=== PATIENT | male | born 1950 | race Caucasian/White ===

== ENCOUNTER → 2017-06-02 | Outpatient (CLI) | payer OTHER ==
[~2017-06-02] MED LIST: ASCO1CAP3 PO; ASPEC325 PO; ATOR-22 PO; B-COTAB18 PO; CHOL1000 PO; DILT-117 PO; FAMO40TA6 PO; FINA5TAB4 PO; FLM4 PO; FURO-85 PO; LOSA100T26 PO; LOSA100T65 PO; NAPR1TAB9 PO; PANT40TA PO; PSYL48.59 PO; SIMV40TA2 PO; vitamin d PO
--- NOTE | 2017-06-03 06:32 | PAP/PSG TECHNICIAN REPORT ---
[facility] Director Of Managed Care Polysomnogram Report Study name: None Report date: 06/03/2017 Study date: 06/02/2017 Referring Physician: Mary Lou NINO M.D. Name: MAC MISTRY Interpreting Physician: Hector Nino M.D. Date of : 1950 Director Of Managed Care: Chela Gray RPSGT. Sex: Male Age: 66 Study Type: PSG Weight: 243 lbs Height: 66 years, Height 5' 10.5" BMI: 34.37 Medications: VIT C 500 MG, ASPIRIN 325 MG, VIT B COMPLEX, FINASTERIDE 5 MG, LOSARTAN, PANTOPRAZOLE 40 MG, SIMVASTATIN 40 MG, FLOMAX 0.4 MG, VIT D 1000 UNIT Patient History 66 yr-old male here for a baseline/split study. He has a history of daytime sleepiness and snoring. The test was started on room air. ETCO2 testing is included in this study. Room 3 Parameters Monitored NPSG: E1-M2, E2-M1, Fp1-M2, Fp2-M1, F3-M2, F4-M2, F4-M1, C3-M2, C4-M2, C4-M1, O1-M2, O2-M2, O2-M1, T3-M2, T4-M1, P3-M2, P4-M1, CHIN1, CHIN2, HR, EKG, Legs, PFLOW, SNOR, FLOW, CFLOW, Tidal Volume, THOR, ABDO, SpO2, PLTH, CPRESS, ETCO2 Wave, ETCO2, pH Sleep Architecture Sleep Stages Time at Lights Off 10:29:20 PM STAGES Time (min.) TST (%) Time at Lights On 5:30:50 AM Wake 42.5 -- Total Recording Time (TRT) 421.50 min. N1 38.5 10 Total Sleep Period (TSP) 408.0 min. N2 252.5 67 Total Sleep Time (TST) 379.0min. N3 31.0 8 Awake Time 42.5 min. REM 57.0 15 Wake after Sleep Onset 37.5 min. Sleep Efficiency (SE) 90 % Sleep Onset Latency (FRAN) 5.0 min. Number of Stage 1 Shifts None Awakenings 22 Stage Changes 113 Number of REM periods 7 REM 57.0 15 REM Latency 72.5 min. NREM 322.0 85 Body Position Analysis Supine Right Left Side Prone Vertical Total Sleep Time (min.) 78.1 114.3 196.7 311.00 0.0 0.0 Total Sleep Time (%) 18% 30% 52% 82 0% N/A% Total Sleep Time REM (min.) 0.0 17.0 40.0 None 0.0 0.0 Total Sleep Time NREM (min.) 68.0 97.3 156.7 None 0.0 0.0 Intermittent Wake (min.) 10.1 18.6 13.8 None 0.0 0.0 Total Sleep Period (%) 18% None None None None None Arousals Myoclonus (PLM) * Events Count Index Events Count Index Spontaneous 17 3 Events Awake (PLMW) 37 52.2 Respiratory 20 3.5 Events Asleep w/ Arousal (PLMA) 5 0.8 PLM 5 1 Events Asleep w/o Arousal (PLMS) 37 5.9 Snoring 14 2 Total Asleep 42 6.6 Total 56 9 Total 79 11 Respiratory Analysis * CA OA MA CH H RERA Total Count 0 0 0 0 92 5 92 Index 0.0 0.0 0.0 0 14.6 1 15.4 Mean Duration 0.0 0.0 0.0 0.00 23.8 20.2 23.6 Longest Duration 0.0 0.0 0.0 0.00 0.0 26.2 54.5 Respiratory Event Summary Total Supine ~Supine Right Left Prone REM NREM Apneas Count 0 0 0 0 0 N/A 0 0 Index 0.0 0 0 0.0 0.0 N/A 0 0 Hypopneas (4% Desat) Count 92 12 80 37 43 N/A 34 58 Index 14.6 10.6 15 19.4 13.1 N/A 35.8 10.8 Apneas & All Hypopneas Count 92 12 80 37 43 N/A 34 58 Index 14.6 11 15 19 13 N/A 35.8 10.8 Respiratory Events (Employee Service Officer+All Hyp+RERA) Count 92 12 85 41 44 N/A 34 58 Index 15.4 11 16 21.5 13.4 N/A 35.8 11.7 Respiratory Related Arousal Count 20 12 21 10 11 N/A 5 17 Index 3.5 1 4 5 3 N/A 5 3 Snoring Analysis Supine Right Left Prone REM NREM Total Snore duration 138.2 min Snores count 794 1,142 2,030 N/A 660 3,306 3,966 Snore mean duration 2.1 Sec Snores index 701 600 619 N/A 694.7 616.0 627.9 TST with snoring (%) 36.5% SpO2 Analysis Total REM NREM Awake <50% 0.0 min. 0.0 min. 0.0 min. 0.0 min. 51 - 60% 0.0 min. 0.0 min. 0.0 min. 0.0 min. 61 - 70% 0.0 min. 0.0 min. 0.0 min. 0.0 min. 71 - 80% 6.5 min. 5.0 min. 1.2 min. 0.4 min. 81 - 90% 369.1 min. 40.3 min. 299.2 min. 29.7 min. 91 - 100% 45.8 min. 11.8 min. 21.7 min. 12.4 min. Average 88 87 88 89 Minimum SpO2 74 75 75 74 Desaturation Event Index 15.9 34.7 13.2 12.7 # Desat. Events below 89% 102 28 67 7 Time(%) with Saturation below 89% 58.2 8.7 45.3 4.2 Time(min.) with Saturation below 89% 245.2 36.6 191.0 17.6 Heart Rate Analysis End Tidal CO2 Analysis Min (bpm) Max (bpm) Average (bpm) TSP (mins) % of TSP Awake 56 91 72 Above 55 mmHg 0.0 0.0 NREM 52 85 65 50-55 mmHg 1.4 0.4 REM 54 83 67 45-50 mmHg 54.3 14.3 Overall 52 85 65 40-45 mmHg 95.0 25.1 35-40 mmHg 52.4 13.8 30-35 mmHg 73.1 19.3 Average ETCO2 0.2 Supplemental O2 Values Minimum O2 level: None Value Start Time End Time Director Of Managed Care Comments Mr. Mistry slept in the right, left, and supine positions. No cardiac arrhythmias or PLMs noted. No bruxism noted. Snoring was noted and scored as a 3 on a scale of 1 through 5. (0=no snoring, 5=snoring loud enough to be heard through a closed door or down the berman way). He did not meet specific Split-Night criteria during the diagnostic portion of this study. He did not wake up to use the restroom during the night. Mr. Mistry stated that he slept almost the same as usual. The final report will be interpreted and signed by a sleep physician. The completed physician report will then be placed in the patient medical record. Therapy (cm H2O) 0 TIB (min.) 421.5 TST (min.) 379.0 Sleep Onset (min.) 5.0 REM Onset From Sleep (min.) 72.5 Sleep Efficiency % 90 Wakefulness (%) 10 Wakefulness (min.) 42.5 NREM 1 (%) 10 NREM 1 (min.) 38.5 NREM 2 (%) 67 NREM 2 (min.) 252.5 NREM 3 (%) 8 NREM 3 (min.) 31.0 REM (%) 15 REM (min.) 57.0 # Arousals 56 Arousal Index 9 # Snore 3,966 Snore Index 627.9 AHI 14.6 AHI Supine 11 AHI Non-Supine 15 NREM AHI 10.8 REM AHI 35.8 RDI 15.4 # Obstructive Apnea 0 # Central Apnea 0 # Mixed Apnea 0 # Hypopneas 92 RERAs 5 Total Respiratory Events 97 Time Below SpO2 89% (min.) 227.6 Mean NREM SpO2 (%) 88 Mean REM SpO2 (%) 87 Mean Sleep SpO2 (%) 88 Min NREM SpO2 (%) 75 Min REM SpO2 (%) 75 Position Supine (min.) 78.1 Position Non-supine (min.) 311.0 LM Index Sleep 6.6 LM Index NREM 6.1 LM Index REM 9.5 Mean Heart Rate (bpm) 65 Min Heart Rate (bpm) 52
--- NOTE | 2017-06-14 19:23 | POLYSOMNOGRAPH REPORT ---
REFERRING PERSON: Dr. Peyton Nino. GLORY HOLE TENDER: Chela Gray. Mr. Mistry is a 66-year-old male sent for a baseline split night sleep study. He has a history of excessive daytime sleepiness and has loud snoring. His [place] Sleepiness Scale score on the evening of this study is unknown. BMI is 34.37. Following the technical and digital specifications of the [place] [employer] (AASM) a standard diagnostic polysomnogram was performed monitoring EEG, EOG, EMG (chin and leg deviations), oxygen saturation, body position, digital video, respiratory effort and airflow. The sleep Stage and event scoring was based on the AASM Manual for the Scoring of Sleep and Associated Events 2007 edition. Apneas are defined as a drop in the peak thermal sensor excursion by >90% of baseline for at least 10 seconds. Hypopneas were scored using the 4% oxygen desaturation rule (4A-Medicare) and a decrease in the nasal pressure excursions by >30% of baseline for at least 10 seconds. Respiratory effort-related arousal (RERA's) is defined as a sequence of breaths lasting at least 10 seconds characterized by increasing respiratory effort or flattening of the nasal pressure waveform leading to an arousal from sleep when the sequence of breaths does not meet criteria for an apnea or hypopnea. Apnea Hypopnea index (AHI) is defined as the number of apneas and hypopneas occurring in an hour of sleep. Respiratory disturbance index (RDI) is defined as the number of apneas, hypopneas, and RERA's occurring in an hour of sleep. Mr. Mistry's total sleep period time was 408 minutes. Total sleep time was 379 minutes. Sleep efficiency was 90%. Latency to sleep onset was 5 minutes with wake after sleep onset of 37.5 minutes. Total non-REM sleep time was 322 minutes. He spent 10% of that time in N1 sleep, 67% in N2 sleep and 8% in N3 sleep. REM latency was 72.5 minutes. Total REM sleep time was 57 minutes or 15% of total sleep time. There were 56 cortical arousals from sleep. 17 of these arousals were spontaneous, 20 were due to respiratory events, 5 due to periodic limb movements of sleep and 14 were due to snoring. There were 42 periodic limb movements noted on this test. Limb movement index was 6.6. Limb movement with arousal index was 0.8. There were no central, obstructive, or mixed apneas on this test. However, there were 92 hypopneas. Apnea-hypopnea index was 14.6. This is consistent with mild sleep apnea. Supine AHI was 11. REM AHI was 35.8. 3966 snoring events were recorded. Total sleep time with snoring was 36.5%. Mean saturation during sleep was low at 88% with desaturations to 74% with respiratory events. Saturations were less than 89% for 245.2 minutes of recorded time. This is very significant nocturnal hypoxemia. This was worse during non-supine REM sleep on this test. There was no supine REM but during 3 periods of non-supine REM, there were desaturations. There was no cardiac ectopy noted on this study. Heart rates during sleep ranged from a low of 52 beats per minute to a high of 85 beats per minute. End End-tidal CO2 was recorded on this test. End tidal CO2s were between 50 and 55 mmHg for 0.4% of total sleep period time, between 45 and 50 mmHg for 14.3%, between 40 and 45 mmHg for 25.1%, between 35 and 40 mmHg for 13.8% and between 30 and 35 mmHg for 19.3% of total sleep period time. IMPRESSION AND PLAN: A 66-year-old male with evidence of mild sleep apnea worsen REM sleep as well as very significant nocturnal hypoxemia on this sleep study. Desaturations were markedly noted in non-supine REM. 1. This patient would likely benefit from positive airway pressure therapy. He should return to the sleep lab for a full night titration and then based on those results be started on equipment at home. A download from his machine can be reviewed in 1 month both to check compliance as well as AHI and further pressure adjustments can occur at that time. 2. Should this patient be unwilling or unable to tolerate CPAP therapy, he should be started on nocturnal oxygen (if his insurance allows) and then referred to ear, nose and throat or oral surgery/dental medicine to discuss alternative treatments for sleep disorder breathing.
== END | disposition home or self-care (01) ==
LOC: C.NEUR 21:00
PROVIDERS: ATTEND Family Medicine
DX: G47.33 Obstructive sleep apnea (adult) (pediatric) (principal); R06.83 Snoring; G47.10 Hypersomnia, unspecified; E66.9 Obesity, unspecified

== ENCOUNTER 2017-06-15 18:42 | Emergency (ER) | payer OTHER ==
[~2017-06-15] VITALS: Ht 177.8 cm; Wt 116.1 kg
[~2017-06-15 18:42] MED LIST changes: -ATOR-22 PO; -CHOL1000 PO; -DILT-117 PO; -FAMO40TA6 PO; -FURO-85 PO; -LOSA100T65 PO; -NAPR1TAB9 PO; -PSYL48.59 PO
[2017-06-15 18:49] VITALS: Ht 177.8 cm; Wt 116.1 kg
[2017-06-15] MEDS ORDERED: LOSA100T65 PO (19:05)
[2017-06-15] MEDS ORDERED: DILT-117 PO (19:05)
[2017-06-15] MEDS ORDERED: FAMO40TA6 PO (19:05)
[2017-06-15] MEDS ORDERED: FURO-85 PO (19:05)
[2017-06-15] MEDS ORDERED: NAPR1TAB9 PO (19:05)
[2017-06-15] MEDS ORDERED: PSYL48.59 PO (19:05)
[2017-06-15] MEDS ORDERED: CHOL1000 PO (19:05)
[2017-06-15] MEDS ORDERED: ATOR-22 PO (19:07)
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
[2017-06-15 20:39] VITALS: BP 160/98; PULSE 93; O2SAT 98
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
== END 2017-06-15 20:40 | disposition home or self-care (01) ==
LOC: EDBD 18:42 → C.EDA 18:44
DX: Z04.3 Encounter for examination and observation following other accident (principal); I10 Essential (primary) hypertension; I44.0 Atrioventricular block, first degree; Z87.891 Personal history of nicotine dependence

== ENCOUNTER → 2018-01-11 | Day surgery (SDC) | payer OTHER ==
[2017-12-02 08:13] VITALS: Ht 177.2 cm; Wt 108.2 kg
[~2018-01-11] VITALS: Ht 177.2 cm; Wt 108.2 kg
[~2018-01-11] MED LIST changes: +500ML BSS 0.3ML EPI 1:1000PF IRRIG ONE; +ACETAMINOPHEN 325 MG TAB PO PRN; +AMVISC PLUS 0.8ML SYRINGE INT OCU ONE; -ASCO1CAP3 PO; -ASPEC325 PO; +ATOR-22 PO; +ATROPINE SULFATE 0.1 MG/ML 5ML SYR IV PRN; +BSS FLUSH ONE; +CHOL1000 PO; +DILT-117 PO; +EpHEDrine SULFATE INJ 50 MG/ML AMP IV PRN; +EpINEphrine INJ 1MG/ML AMP 1 MG/ML AMP ONE; +FAMO40TA6 PO; -FLM4 PO; +FURO-85 PO; +LACTATED RINGER'S 1000ML 500 ML IV SCH; +LIDOCAINE 3.5% OPH GEL PER APPLICATION CHARGE ONE; +LIDOCAINE HCL 1% MPF 2 ML VIAL ONE; -LOSA100T26 PO; +LOSA100T65 PO; +MIDAZOLAM HCL 1 MG/ML 2ML VIAL ONE; +NAPR1TAB9 PO; +OCUCOAT 1 ML SOLN IO ONE; +PHENYLEPHRINE HCL 10% OP SOLN PER DROP CHARGE OPL SCH; +POVIDONE-IODINE OP SOLN 30 ML BTL ONE; +PROPARACAINE 0.5% OP SOLN PER DROP CHARGE OPL SCH; +PSYL48.59 PO; -SIMV40TA2 PO; +TAMS0.4C38 PO; +TOBRAMYCIN/DEXAMETHASONE OPH OINT PER APPLN CHARGE ONE; -vitamin d PO
[2018-01-11] MEDS: PHENYLEPHRINE HCL 2.5% OP SOLN PER DROP CHARGE OPL SCH ×2 (10:28→10:37)
[2018-01-11] MEDS: TROPICAMIDE 1% OP SOLN PER DROP CHARGE OPL SCH ×2 (10:29→10:38)
[2018-01-11] MEDS: CYCLOPENTOLATE HCL 1% OP SOLN PER DROP CHARGE OPL SCH ×2 (10:30→10:39)
[2018-01-11] MEDS: KETOROLAC 0.5% OP SOLN PER DROP CHARGE OPL SCH ×2 (10:31→10:40)
[2018-01-11] MEDS: GATIFLOXACIN OP SOLN PER DROP CHARGE OPL SCH ×2 (10:32→10:42)
--- NOTE | 2018-01-11 10:37 | History & Physical Bridge - SC ---
H&P Re-Evaluation Bridge Note: I have examined the patient, reviewed the History & Physical and in the interval since the performance of the History & Physical I have noted the following changes of clinical significance Diagnosis: Left Cataract Procedure: Left Cataract Removal with Lens Implant : No changes noted
--- NOTE | 2018-01-11 11:21 | [facility] Operative Report ---
Operative Report Date of Service January 11, 2018. Operative Report 1. PREOPERATIVE DIAGNOSIS: Cataract of the left eye. 2. POSTOPERATIVE DIAGNOSIS: Same. 3. PROCEDURE: Phacoemulsification with intraocular lens implantation of the left eye. SURGEON: Dr. Scott Owens. ANESTHESIA: Topical Lidocaine gel, 1% Non- Preserved intracameral Lidocaine, and monitored intravenous sedation. INDICATIONS FOR THE PROCEDURE: The patient is a 67 - year-old male with a history of cataract of the left eye causing significant visual impairment. The details of the proposed procedure were explained to the patient who asked appropriate questions and following discussion of all risks, benefits and alternatives agreed to have the procedure done. Patient had corneal astigmatism and therefore elected to have a toric lens placed. 4. OPERATION AND FINDINGS: DESCRIPTION OF PROCEDURE: After informed consent was obtained, the .patient was placed in an upright position and the cornea was marked at 85 degrees using the [employer] corneal marking tool. The patient was brought to the Operating Room at the [facility]. The patient was placed in a supine position and then the left eye was prepped and draped in the usual sterile fashion for intraocular surgery. A drop of topical Lidocaine gel was placed in the operative eye. A wire lid speculum was then placed in the fornices. A corneal paracentesis was then created temporally. The Non-Preserved Lidocaine was then instilled into the anterior chamber. The anterior chamber was then pressurized with viscoelastic. A 2.0 mm clear corneal incision was then created temporally. A cystotome was inserted into the anterior chamber and used to create a tear in the anterior lens capsule. This capsular tear was then used to create a small flap and the flap was dragged in a counterclockwise direction in order to create a continuous curvilinear capsulorrhexis. Hydrodissection was accomplished with balanced salt solution. Phacoemulsification of the lens nucleus was then performed in a standard divide- and-conquer technique. The phaco time was 21 seconds with an average power of 13 %. The remaining cortical material was removed using irrigation aspiration. The capsular bag was then filled with viscoelastic. A Tommie [id number] +13.5 diopters lens was then loaded into the injector and injected into the capsular bag. The remaining viscoelastic was removed with the irrigation aspiration handpiece. The wound was hydrated and then checked and found to be watertight. The intraocular pressure was checked and found to be adequate. The wire lid speculum was removed and the patient's face was cleaned and dried. TobraDex ointment was placed in the inferior fornix. The patient was discharged to the Recovery Room having tolerated the procedure well. There were no complications. The patient will be seen tomorrow in the office for follow-up. I attest to the content of the Intraoperative Record and any orders documented therein. Any exceptions are noted below.
--- NOTE | 2018-01-11 11:22 | Discharge Instructions-SurgCtr ---
Discharge Instructions Date of Service January 11, 2018. Visit Reason for Visit: Cataract Left Eye Discharge Discharge Diagnosis / Problem: cataract Discharge Goals Goal(s): Improve function Activity Recommendations Activity Limitations: per Instructions/Follow-up section Anesthesia . Post Anesthesia Instructions: If you have had General Anesthesia or IV Sedation: * Do not drive today. * Resume driving when surgeon permits. * Do not make important decisions or sign legal documents today. * Call surgeon for: 1. Temperature elevations greater than 101 degrees F. 2. Uncontrollable pain. 3. Excessive bleeding. 4. Persistent nausea and vomiting. 5. Medication intolerance (nausea, vomiting or rash). * For nausea and vomiting use only clear liquids such as: tea, soda, bouillon until nausea subsides, then gradually increase diet as tolerated. * If you have any concerns or questions, call your surgeon's office. If physician is unavailable and it is an emergency, call 911 or go to the nearest emergency room. . Diet Recommendations Home Diet: resume previous diet Procedures Procedures Performed: Left Cataract Phacoemulsification With Intraocular Lens Implant Pending Studies Studies pending at discharge: no Medical Emergencies . Who to Call and When: Medical Emergencies: If at any time you feel your situation is an emergency, please call 911 immediately. . Non-Emergent Contact Non-Emergency issues call your: Coding Technician . . "Provider Documentation" section prepared by Scott Owens. .
[2018-01-11 11:23] VITALS: TEMP 36.7
--- NOTE | 2018-01-11 11:39 | Anesthesia Progress Nt - [facility] ---
Anesthesia Post Op Note Date & Time January 11, 2018 at 11:39 Vital Signs Pain Intensity: 0 Vital Signs Past 12 Hours Date Time Temp Pulse Resp B/P (MAP) Pulse Ox O2 Delivery O2 Flow Rate FiO2 01/11/18 11:23 36.7 58 16 127/80 (96) 98 Room Air 01/11/18 10:18 37.1 97 20 124/83 (97) 95 Room Air Notes Mental Status: alert / awake / arousable, participated in evaluation Pt Amnestic to Procedure: Yes Nausea / Vomiting: adequately controlled Pain: adequately controlled Airway Patency, RR, SpO2: stable & adequate BP & HR: stable & adequate Hydration State: stable & adequate Anesthetic Complications: no major complications apparent
[2018-01-11 11:40] VITALS: BP 115/77; PULSE 55; O2SAT 94
== END | disposition home or self-care (01) ==
LOC: X.SURG 09:23
PROVIDERS: ATTEND Ophthalmology
DX: H26.9 Unspecified cataract (principal); I10 Essential (primary) hypertension; E78.5 Hyperlipidemia, unspecified; K21.9 Gastro-esophageal reflux disease without esophagitis; H91.93 Unspecified hearing loss, bilateral; G47.33 Obstructive sleep apnea (adult) (pediatric); Z79.82 Long term (current) use of aspirin; Z79.899 Other long term (current) drug therapy; Z82.49 Family history of ischemic heart disease and other diseases of the circulatory system; Z87.891 Personal history of nicotine dependence; Z88.8 Allergy status to other drugs, medicaments and biological substances; E66.9 Obesity, unspecified

== ENCOUNTER → 2018-01-25 | Day surgery (SDC) | payer OTHER ==
[2018-01-18 08:46] VITALS: Ht 177.2 cm; Wt 108.2 kg
[~2018-01-25] VITALS: Ht 177.2 cm; Wt 108.2 kg
[~2018-01-25] MED LIST changes: +AMVISC PLAIN 0.8ML SYRINGE INT OCU ONE; +MIX: 4ML BSS 1ML EPI 1:1000 PF INSTIL ONE; -PHENYLEPHRINE HCL 10% OP SOLN PER DROP CHARGE OPL SCH; +PHENYLEPHRINE HCL 10% OP SOLN PER DROP CHARGE OPR SCH; -PROPARACAINE 0.5% OP SOLN PER DROP CHARGE OPL SCH; +PROPARACAINE 0.5% OP SOLN PER DROP CHARGE OPR SCH
[2018-01-25] MEDS: PHENYLEPHRINE HCL 2.5% OP SOLN PER DROP CHARGE OPR SCH ×2 (06:33→06:40)
[2018-01-25] MEDS: TROPICAMIDE 1% OP SOLN PER DROP CHARGE OPR SCH ×2 (06:34→06:41)
[2018-01-25] MEDS: CYCLOPENTOLATE HCL 1% OP SOLN PER DROP CHARGE OPR SCH ×2 (06:35→06:42)
[2018-01-25] MEDS: KETOROLAC 0.5% OP SOLN PER DROP CHARGE OPR SCH ×2 (06:36→06:43)
[2018-01-25] MEDS: GATIFLOXACIN OP SOLN PER DROP CHARGE OPR SCH ×2 (06:37→06:47)
--- NOTE | 2018-01-25 06:58 | History & Physical Bridge - SC ---
H&P Re-Evaluation Bridge Note: I have examined the patient, reviewed the History & Physical and in the interval since the performance of the History & Physical I have noted the following changes of clinical significance: Diagnosis: Right Cataract Procedure: Right Cataract Removal with Lens Implant No changes noted
--- NOTE | 2018-01-25 07:26 | [facility] Operative Report ---
Operative Report Date of Service January 25, 2018. Operative Report 1. PREOPERATIVE DIAGNOSIS: Cataract of the right eye. 2. POSTOPERATIVE DIAGNOSIS: Same. 3. PROCEDURE: Phacoemulsification with intraocular lens implantation of the right eye. SURGEON: Dr. Scott Owens. ANESTHESIA: Topical Lidocaine gel, 1% Non- Preserved intracameral Lidocaine, and monitored intravenous sedation. INDICATIONS FOR THE PROCEDURE: The patient is a 67 - year-old male with a history of cataract of the right eye causing significant visual impairment. The details of the proposed procedure were explained to the patient who asked appropriate questions and following discussion of all risks, benefits and alternatives agreed to have the procedure done. The patient had a know history of taking of flomax. Patient had corneal astigmatism and therefore elected to have a toric lens placed. 4. OPERATION AND FINDINGS: DESCRIPTION OF PROCEDURE: After informed consent was obtained,patient was placed in an upright position and the cornea was marked at 76 degrees using the IVFXPERT corneal marking tool. The the patient was brought to the Operating Room at the [facility]. The patient was placed in a supine position and then the right eye was prepped and draped in the usual sterile fashion for intraocular surgery. A drop of topical Lidocaine gel was placed in the operative eye. A wire lid speculum was then placed in the fornices. A corneal paracentesis was then created temporally. The Non-Preserved Lidocaine was then instilled into the anterior chamber. Epinephrine with a 1:4 dilution was instilled into the anterior chamber. The anterior chamber was then pressurized with viscoelastic. A 2.0 mm clear corneal incision was then created temporally. A cystotome was inserted into the anterior chamber and used to create a tear in the anterior lens capsule. This capsular tear was then used to create a small flap and the flap was dragged in a counterclockwise direction in order to create a continuous curvilinear capsulorrhexis. Hydrodissection was accomplished with balanced salt solution. Phacoemulsification of the lens nucleus was then performed in a standard divide- and-conquer technique. The phaco time was 23 seconds with an average power of 10 %. The remaining cortical material was removed using irrigation aspiration. The capsular bag was then filled with viscoelastic. A Tommie [id number] +13.0 diopters lens was then loaded into the injector and injected into the capsular bag. The remaining viscoelastic was removed with the irrigation aspiration handpiece. The lens was aligned with the previously made corneal reardon. The wound was hydrated and then checked and found to be watertight. The intraocular pressure was checked and found to be adequate. The wire lid speculum was removed and the patient's face was cleaned and dried. TobraDex ointment was placed in the inferior fornix. The patient was discharged to the Recovery Room having tolerated the procedure well. There were no complications. The patient will be seen tomorrow in the office for follow-up. I attest to the content of the Intraoperative Record and any orders documented therein. Any exceptions are noted below.
--- NOTE | 2018-01-25 07:27 | Discharge Instructions-SurgCtr ---
Discharge Instructions Date of Service January 25, 2018. Visit Reason for Visit: Cataract Right Eye Discharge Discharge Diagnosis / Problem: cataract Discharge Goals Goal(s): Improve function Activity Recommendations Activity Limitations: per Instructions/Follow-up section Anesthesia . Post Anesthesia Instructions: If you have had General Anesthesia or IV Sedation: * Do not drive today. * Resume driving when surgeon permits. * Do not make important decisions or sign legal documents today. * Call surgeon for: 1. Temperature elevations greater than 101 degrees F. 2. Uncontrollable pain. 3. Excessive bleeding. 4. Persistent nausea and vomiting. 5. Medication intolerance (nausea, vomiting or rash). * For nausea and vomiting use only clear liquids such as: tea, soda, bouillon until nausea subsides, then gradually increase diet as tolerated. * If you have any concerns or questions, call your surgeon's office. If physician is unavailable and it is an emergency, call 911 or go to the nearest emergency room. . Diet Recommendations Home Diet: resume previous diet Procedures Procedures Performed: Right Cataract Phacoemulsification With Intraocular Lens Implant; Toric Lens Pending Studies Studies pending at discharge: no Medical Emergencies . Who to Call and When: Medical Emergencies: If at any time you feel your situation is an emergency, please call 911 immediately. . Non-Emergent Contact Non-Emergency issues call your: [employer] . . "Provider Documentation" section prepared by Scott Owens. .
[2018-01-25 07:30] VITALS: TEMP 36.7
[2018-01-25 07:48] VITALS: BP 116/76; O2SAT 95
--- NOTE | 2018-01-25 07:56 | Anesthesia Progress Nt - [facility] ---
Anesthesia Post Op Note Date & Time January 25, 2018 at 07:56 Vital Signs Pain Intensity: 0 Vital Signs Past 12 Hours Date Time Temp Pulse Resp B/P (MAP) Pulse Ox O2 Delivery O2 Flow Rate FiO2 01/25/18 07:48 60 116/76 (89) 95 Room Air 01/25/18 07:30 36.7 64 18 123/81 (95) 94 Room Air 01/25/18 06:27 36.9 74 20 149/90 (109) 95 Room Air Notes Mental Status: alert / awake / arousable, participated in evaluation Pt Amnestic to Procedure: Yes Nausea / Vomiting: adequately controlled Pain: adequately controlled Airway Patency, RR, SpO2: stable & adequate BP & HR: stable & adequate Hydration State: stable & adequate Anesthetic Complications: no major complications apparent
== END | disposition home or self-care (01) ==
LOC: X.SURG 06:18
PROVIDERS: ATTEND Ophthalmology
DX: H26.9 Unspecified cataract (principal); I10 Essential (primary) hypertension; E78.5 Hyperlipidemia, unspecified; K21.9 Gastro-esophageal reflux disease without esophagitis; N40.0 Benign prostatic hyperplasia without lower urinary tract symptoms; G47.33 Obstructive sleep apnea (adult) (pediatric); Z98.42 Cataract extraction status, left eye; E66.9 Obesity, unspecified; Z68.38 Body mass index [BMI] 38.0-38.9, adult; Z90.89 Acquired absence of other organs; Z90.49 Acquired absence of other specified parts of digestive tract; Z88.8 Allergy status to other drugs, medicaments and biological substances; Z87.891 Personal history of nicotine dependence; Z98.890 Other specified postprocedural states; Z79.899 Other long term (current) drug therapy; Z79.82 Long term (current) use of aspirin; Z82.49 Family history of ischemic heart disease and other diseases of the circulatory system